=== PATIENT | female | born 1985 | race American Indian/Alaskan Native ===

== ENCOUNTER 2017-04-05 14:17 | Emergency (ER) | payer SELFPAY ==
--- NOTE | 2017-04-05 15:32 | Emergency Department Report ---
Chief Complaint: Dizziness Stated Complaint: CHEST PAIN/HEADACHE/VOMITTING/PASSED OUT 2X Time Seen by Provider: 04/05/17 15:30 - HPI History of Present Illness: morbidly obese numerous complaints cp sob syncope vomiting bp elevated- no hx per pt eval - Exam Vital Signs: Vital Signs 04/05/17 15:28 Temperature 98.5 F Pulse Rate 91 H Respiratory 18 Rate Blood Pressure 163/119 O2 Sat by Pulse 99 Oximetry MSE screening note: Focused history and physical exam performed. Due to findings the following was ordered: ED Medical Decision Making - Lab Data Result diagrams: 04/05/17 15:47 04/05/17 15:47 ED Disposition for MSE Condition: Stable
[2017-04-05 16:03] LABS: Basophils % (Auto) 0.4 % (0.0-1.8); Hematocrit 37.7 % (30.3-42.9); Hemoglobin 12.1 gm/dl (10.1-14.3); Mean Corpuscular HGB Conc 32 % (30-34); Mean Corpuscular Hemoglobin 28 pg (28-32); Mean Corpuscular Volume 87 fl (79-97); Platelet Count 326 K/mm3 (140-440); Red Blood Count 4.32 M/mm3 (3.65-5.03); Red Cell Distribution Width 16.5 % (13.2-15.2); White Blood Count 8.3 K/mm3 (4.5-11.0)
[2017-04-05 16:31] LABS: Alanine Aminotransferase 15 units/L (7-56); Albumin 3.8 g/dL (3.9-5); Albumin/Globulin Ratio 1.1 %; Alkaline Phosphatase 81 units/L (35-129); Anion Gap 17 mmol/L; Blood Urea Nitrogen 8 mg/dL (7-17); Calcium 9.1 mg/dL (8.4-10.2); Carbon Dioxide 28 mmol/L (22-30); Chloride 98.9 mmol/L (98-107); Creatine Kinase 110 units/L (30-135); Glucose 100 mg/dL (65-100); Potassium 4.5 mmol/L (3.6-5.0); Sodium 139 mmol/L (137-145); Total Protein 7.3 g/dL (6.3-8.2)
[2017-04-05 16:46] LABS: Creatine Kinase MB < 1.0 ng/mL (0.0-4.0)
[2017-04-05 17:53] LABS: Bilirubin,Urine NEG (Negative); Blood,Urine LG (Negative); Ketones,Urine NEG (Negative); Leukocyte Esterase,Urine MOD (Negative); Mucus,Urine 1+ /HPF; Nitrite,Urine NEG (Negative); Urobilinogen,Urine < 2.0 mg/dL (<2.0)
--- NOTE | 2017-04-05 18:48 | Cat Scan Report ---
FINAL REPORT PROCEDURE: CT HEAD/BRAIN WO CON TECHNIQUE: Computerized tomography of the head was performed without contrast material. HISTORY: dizzy, near syncope, face numbness, htn COMPARISON: Prior CT scan of the brain 01/30/2016 FINDINGS: Brain: Brain density appears normal. No evidence of intracranial hemorrhage. No parenchymal hemorrhage, mass lesions or mass effect are seen. No abnormal extraxial fluid collects or masses are seen. Ventricles: Ventricles are normal size and are midline. Bone Windows: No evidence of skull fracture. Paranasal sinuses: There is mild nodular mucosal thickening inferiorly in the left maxillary sinus. No air-fluid level is seen. Mastoid air cells: Clear IMPRESSION: Negative exam. If symptoms persist or worsen consider follow-up CT scan or MRI for further evaluation. Mild paranasal sinus disease as described.
[2017-04-05] MEDS ORDERED: APRESOLINE ONE (19:06)
[2017-04-05] MEDS ORDERED: APRESOLINE PO ONE (19:18)
[2017-04-05 19:20] VITALS: BP 188/108
--- NOTE | 2017-04-09 00:43 | ED Elopement Review ---
ED Pt Elopement review - Results review Lab results: Laboratory Tests 04/05/17 04/05/17 04/05/17 15:47 15:47 17:36 WBC 8.3 RBC 4.32 Hgb 12.1 Hct 37.7 MCV 87 MCH 28 MCHC 32 RDW 16.5 H Plt Count 326 Lymph % (Auto) 30.0 [place] % (Auto) 7.6 H Eos % (Auto) 1.0 Baso % (Auto) 0.4 Lymph # 2.5 [place] # 0.6 Eos # 0.1 Baso # 0.0 Seg Neutrophils % 61.0 Seg Neutrophils # 5.1 Sodium 139 Potassium 4.5 Chloride 98.9 Carbon Dioxide 28 Anion Gap 17 BUN 8 Creatinine 0.5 L Estimated GFR > 60 BUN/Creatinine Ratio 16.00 Glucose 100 Calcium 9.1 Total Bilirubin 0.30 AST 12 ALT 15 Alkaline Phosphatase 81 Total Creatine Kinase 110 CK-MB (CK-2) < 1.0 CK-MB (CK-2) Rel Index 0.9 Troponin T < 0.010 Total Protein 7.3 Albumin 3.8 L Albumin/Globulin Ratio 1.1 Urine Color Yellow Urine Turbidity Slightly-cloudy Urine pH 5.0 Ur Specific [place] 1.029 Urine Protein 100 mg/dl Urine Glucose (UA) Neg Urine Ketones Neg Urine Blood Lg Urine Nitrite Neg Urine Bilirubin Neg Urine Urobilinogen < 2.0 Ur Leukocyte Esterase Mod Urine WBC (Auto) 31.0 H Urine RBC (Auto) 18.0 U Epithel Cells (Auto) 9.0 Urine Mucus 1+ Urine HCG, Qual Negative - Call Back decision Pt Call Back Decision: Pt to F/U with PMD
== END 2017-04-05 20:50 | disposition left against medical advice (07) ==
LOC: ED 14:17
DX: R07.9 Chest pain, unspecified (principal); R06.02 Shortness of breath; R55 Syncope and collapse; R11.10 Vomiting, unspecified; Z53.21 Procedure and treatment not carried out due to patient leaving prior to being seen by health care provider
CPT/HCPCS: 36415; 70450; 80053; 81001; 81025; 82550; 82553; 84484; 85025